=== PATIENT | male | born 1975 | race Caucasian/White ===

== ENCOUNTER 2017-03-22 08:43 | Emergency (ER) | payer OTHER ==
[~2017-03-22] VITALS: Ht 172.7 cm; Wt 74.8 kg
[2017-03-22] MEDS ORDERED: IBUPROFEN 800800 MG PO (09:18)
[2017-03-22] MEDS ORDERED: BACTRIM 400-801 EACH PO (09:18)
[2017-03-22 09:27] VITALS: BP 131/74
== END 2017-03-22 09:27 | disposition home or self-care (01) ==
LOC: M.ERS 08:43
DX: H66.92 Otitis media, unspecified, left ear (principal); Z88.0 Allergy status to penicillin